=== PATIENT | female | born 1995 | race Hispanic/Latino ===

== ENCOUNTER 2017-11-30 08:51 | Emergency (ER) | payer OTHER, SELFPAY ==
[2017-11-30] MEDS ORDERED: CEFTRIAXONE/SWI 1gm 1 GM/10 ML SYR ONE (09:09)
[2017-11-30 09:35] LABS: Absolute Lymphocytes (CBC) 0.6 K/uL (0.7-4.9); Absolute Monocytes 0.3 K/uL (0.1-1.3); Absolute Neutrophil 11.6 K/uL (1.8-8.0); Basophils % 0.1 % (0-1.3); Eosinophils % 0.3 % (0-4.4); Hematocrit 32.6 % (36.0-45.0); Lymphocytes % 4.8 % (15.3-44.8); MCV 88.8 fL (80-100); MPV 10.1 fL (7.6-11.3); Monocytes % 2.1 % (3.3-12.3); RBC Red Blood Cell Count 3.67 M/uL (3.86-4.86)
[2017-11-30] MEDS ORDERED: NA CHLORIDE 0.9% 1,000 ML ONE ×2 (09:37→10:46)
[2017-11-30 09:43] LABS: Urine Bacteria 20-50 /HPF (<20); Urine Culture Reflex Order NOT NEEDED; Urine RBC <5 /HPF (NONE SEEN)
[2017-11-30 09:48] LABS: Glucose Level 76 mg/dL (65-120)
[2017-11-30 09:54] LABS: ALT/SGPT 13 IU/L (10-60); AST/SGOT 17 IU/L (10-42); Albumin 2.9 g/dL (3.2-5.5); Alkaline Phosphatase 120 IU/L (42-121); BUN Blood Urea Nitrogen 5 mg/dL (6-20); Bilirubin Direct 0.1 mg/dL (0-0.2); Bilirubin Total 0.6 mg/dL (0.3-1.2)
[2017-11-30 10:04] LABS: Potassium 3.6 mEq/L (3.6-5.0); Sodium Level 132 mEq/L (135-145)
[2017-11-30 10:06] LABS: Bicarbonate 13 mEq/L (21-31)
[2017-11-30 10:43] LABS: Blood Morphology Comment NOT SEEN (NOT SEEN); Platelet Estimate ADEQ
[2017-11-30] MEDS ORDERED: D5W IV SCH (11:00)
[2017-11-30] MEDS ORDERED: NA BICARB IV SCH (11:00)
[2017-11-30 11:51] LABS: Blood Gas Oxyhemoglobin 96.5 % (94-97); Blood O2 Saturation 98.5 % (92-98.5)
[2017-11-30 13:21] LABS: Bicarbonate 16 mEq/L (21-31); Glucose Level 135 mg/dL (65-120); Potassium 3.4 mEq/L (3.6-5.0); Sodium Level 134 mEq/L (135-145)
[2017-11-30 13:29] LABS: BUN Blood Urea Nitrogen < 5 mg/dL (6-20)
--- NOTE | 2017-11-30 14:06 | ER ---
Nurse's Notes [facility] Name: Mlaini Anne Age: 22 yrs Sex: Female : 1995 Arrival Date: 11/30/2017 Time: 08:52 Bed 16 Private MD: Diagnosis: Type 1 diabetes mellitus; state;Dehydration;Urinary tract infection, site not specified Presentation: 11/30 08:53 Presenting complaint: EMS states: Fever and foul smelling urine x 2 days. Pt is 20 hb weeks , . Hx DM, preeclampsia, DKA. BP 110/60, HR104, SpO2 99% on RA, T 99.8, BGL 81. Has not had breakfast or morning insulin. Transition of care: patient was not received from another setting of care. Onset of symptoms was November 29, 2017. Risk Assessment: Do you want to hurt yourself or someone else? Patient reports no desire to harm self or others. Initial Sepsis Screen: Does the patient meet any 2 criteria? No. Patient's initial sepsis screen is negative. Does the patient have a suspected source of infection? No. Patient's initial sepsis screen is negative. Care prior to arrival: None. 08:53 Method Of Arrival: EMS: [facility] hb 08:53 Acuity: SHERLY 3 hb Triage Assessment: 10:10 General: Behavior is cooperative. 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 - Social history:: Smoking status: Patient/guardian denies using tobacco. - Ebola Screening: : No symptoms or risks identified at this time. Screenin:59 Abuse screen: Denies threats or abuse. Denies injuries from another. Nutritional hb screening: No deficits noted. Tuberculosis screening: No symptoms or risk factors identified. Fall Risk None identified. Assessment: 09:10 General: Appears in no apparent distress. Pain: Pain currently is 6 out of 10 on a pain hb scale. Neuro: Level of Consciousness is awake, alert, obeys commands, Oriented to person, place, time, situation. Cardiovascular: Capillary refill < 3 seconds Patient's skin is warm and dry. Respiratory: Airway is patent Trachea midline Respiratory effort is even, unlabored, Respiratory pattern is regular, symmetrical. GI: No signs and/or symptoms were reported involving the gastrointestinal system. : Reports right flank pain, foul smelling urine. EENT: No signs and/or symptoms were reported regarding the EENT system. Derm: No signs and/or symptoms reported regarding the dermatologic system. Skin is intact, is healthy with good turgor. Musculoskeletal: No signs and/or symptoms reported regarding the musculoskeletal system. 09:25 Reassessment: BGL 67, SENIOR TECHNICAL SUPPORT ENGINEER Eva notified, orange juice provided as ordered. hb 10:00 Reassessment: BGL 83. SENIOR TECHNICAL SUPPORT ENGINEER Eva notified. NAD. VSS. Family remains at bedside. hb 10:41 General: Appears in no apparent distress. comfortable. Neuro: Level of Consciousness is aj1 awake, alert, obeys commands, Oriented to person, place, time, situation, Speech is normal. Cardiovascular: Patient's skin is warm and dry. Respiratory: Airway is patent Respiratory effort is even, unlabored, Respiratory pattern is regular, symmetrical. GI: No signs and/or symptoms were reported involving the gastrointestinal system. : Reports foul smelling urine. EENT: No signs and/or symptoms were reported regarding the EENT system. Derm: No signs and/or symptoms reported regarding the dermatologic system. Skin is pink, warm \T\ dry. normal. Musculoskeletal: No signs and/or symptoms reported regarding the musculoskeletal system. Circulation, motion, and sensation intact. 11:45 Reassessment: Patient appears in no apparent distress at this time. No changes from aj1 previously documented assessment. Patient and/or family updated on plan of care and expected duration. Pain level reassessed. Patient is alert, oriented x 3, equal unlabored respirations, skin warm/dry/pink. 12:20 Reassessment: Patient appears in no apparent distress at this time. No changes from aj1 previously documented assessment. Patient and/or family updated on plan of care and expected duration. Pain level reassessed. Patient is alert, oriented x 3, equal unlabored respirations, skin warm/dry/pink. 13:17 Reassessment: Patient appears in no apparent distress at this time. No changes from aj1 previously documented assessment. Patient and/or family updated on plan of care and expected duration. Pain level reassessed. Patient is alert, oriented x 3, equal unlabored respirations, skin warm/dry/pink. 14:34 Reassessment: Patient appears in no apparent distress at this time. No changes from aj1 previously documented assessment. Patient and/or family updated on plan of care and expected duration. Pain level reassessed. Patient is alert, oriented x 3, equal unlabored respirations, skin warm/dry/pink. Vital Signs: 08:55 BP 102 / 72; Pulse 100; Resp 16; Temp 99.7; Pulse Ox 100% on R/A; Pain 10/10; hb 10:42 BP 104 / 62; Pulse 87; Resp 18; Pulse Ox 99% on R/A; aj1 11:45 BP 106 / 68; Pulse 82; Resp 18; Pulse Ox 99% on R/A; aj1 12:20 BP 102 / 68; Pulse 84; Resp 18; Pulse Ox 100% on R/A; aj1 13:17 BP 105 / 62; Pulse 78; Resp 18; Pulse Ox 100% on R/A; aj1 14:35 BP 104 / 66; Pulse 82; Resp 18; Pulse Ox 99% ; aj1 Vitals: 09:30 Heart Tones 156, variable, + movement. hb ED Course: 08:52 Patient arrived in ED. hb 08:52 Eva Umana FNP-C is PHCP. snw 08:52 Naseem Meraz MD is Attending Physician. snw 08:55 Triage completed. hb 08:57 Arm band placed on right wrist. hb 09:15 Patient has correct armband on for positive identification. Placed in gown. Bed in low hb position. Call light in reach. Side rails up X 1. 09:29 Azucena Sevilla, RN is Primary Nurse. hb 10:06 Notified Nurse Practitioner and/or Physician Filler Block Inserter Remover of a critical lab result(s), iw CO2=13. 14:35 No provider procedures requiring assistance completed. IV discontinued, intact, aj1 bleeding controlled, No redness/swelling at site. Pressure dressing applied. Administered Medications: 09:15 Drug: NS 0.9% 1000 ml Route: IV; Rate: 250 ml/hr; Site: left forearm; hb 14:37 Follow up: IV Status: Completed infusion; IV Intake: 1000ml aj1 09:34 Drug: Rocephin - (cefTRIAXone) 1 grams Route: IVPB; Infused Over: 30 mins; Site: left hb forearm; 14:38 Follow up: Response: No adverse reaction; IV Status: Completed infusion aj1 10:49 Drug: D5W with Sodium Bicarbonate 50 mEq/L 1000 ml Route: IV; Rate: 250 ml/hr; Site: aj1 left antecubital; 14:37 Follow up: IV Status: Completed infusion; IV Intake: 1000ml aj1 10:49 Drug: NS 0.9% 1000 ml Route: IV; Rate: 1 bolus; Site: left antecubital; aj1 14:37 Follow up: IV Status: Completed infusion; IV Intake: 1000ml aj1 Point of Care Testing: Blood Glucose: 09:16 Blood Glucose: 67 mg/dL; hb 09:55 Blood Glucose: 83 mg/dL; hb 13:06 Blood Glucose: 141 mg/dL; aj1 Ranges: Intake: 14:37 IV: 1000ml; Total: 1000ml. aj1 14:37 IV: 1000ml; Total: 2000ml. aj1 14:37 IV: 1000ml; Total: 3000ml. aj1 Outcome: 14:36 AMA AMA form signed aj1 14:36 Condition: unchanged 14:36 Discharge instructions given to patient, Instructed on risks of leaving AMA, [facility] Demonstrated understanding of instructions. 14:38 Patient left the ED. aj1 Addendum: 12/04/2017 10:04 Addendum: Culture Results: Positive urine culture. Bacteria is resistant to, has i w intermediate sensitivity, or is not tested against prescribed antibiotics. Report given to CESAR for further evaluation and then to recreational vehicle resort manager for follow up with patient. Phone call Attempt #1 phone number not working. Signatures: Angeles Silver RN RN aj1 Eva Umana, BROOKE-C AGENT TICKETING GATE-Csnw Patricia Ibanez RN RN Azucena Sevilla RN RN
--- NOTE | 2017-11-30 14:06 | EDPHYS ---
Physician Documentation [facility] Name: Malini Anne Age: 22 yrs Sex: Female : 1995 Arrival Date: 11/30/2017 Time: 08:52 Bed 16 Private MD: ED Physician Naseem Meraz HPI: 11/30 09:04 This 22 yrs old Female presents to ER via EMS with complaints of Fever, snw Urinary Problem. 09:04 The patient presents with urinary symptoms. Onset: The symptoms/episode began/occurred snw 2 day(s) ago, and became persistent. Modifying factors: The symptoms are alleviated by nothing. Associated signs and symptoms: Pertinent positives: cramping, Pertinent negatives: vaginal bleeding, vaginal discharge. Severity of symptoms: At their worst the symptoms were moderate. The patient has experienced similar episodes in the past. 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 - Social history:: Smoking status: Patient/guardian denies using tobacco. - Ebola Screening: : No symptoms or risks identified at this time. ROS: 09:01 Constitutional: Negative for chills and weight loss, + malaise, low grade temp Eyes: snw Negative for injury, pain, redness, and discharge, ENT: Negative for injury, pain, and discharge, Neck: Negative for injury, pain, and swelling, Cardiovascular: Negative for chest pain, palpitations, and edema, Respiratory: Negative for shortness of breath, cough, wheezing, and pleuritic chest pain, Abdomen/GI: Negative for abdominal pain, nausea, vomiting, diarrhea, and constipation, Back: Negative for injury and pain, : Negative for injury, bleeding, discharge, and swelling, MS/Extremity: Negative for injury and deformity, Skin: Negative for injury, rash, and discoloration, Neuro: Negative for headache, weakness, numbness, tingling, and seizure, Psych: Negative for depression, anxiety, suicide ideation, homicidal ideation, and hallucinations. Exam: 08:55 Constitutional: This is a well developed, well nourished patient who is awake, alert, snw and in no acute distress. Head/Face: Normocephalic, atraumatic. Eyes: Pupils equal round and reactive to light, extra-ocular motions intact. Lids and lashes normal. Conjunctiva and sclera are non-icteric and not injected. Cornea within normal limits. Periorbital areas with no swelling, redness, or edema. ENT: Nares patent. No nasal discharge, no septal abnormalities noted. Tympanic membranes are normal and external auditory canals are clear. Oropharynx with no redness, swelling, or masses, exudates, or evidence of obstruction, uvula midline. Mucous membranes moist. Neck: Trachea midline, no thyromegaly or masses palpated, and no cervical lymphadenopathy. Supple, full range of motion without nuchal rigidity, or vertebral point tenderness. No Meningismus. Chest/axilla: Normal chest wall appearance and motion. Nontender with no deformity. No lesions are appreciated. Cardiovascular: Regular rate and rhythm with a normal S1 and S2. No gallops, murmurs, or rubs. Normal PMI, no JVD. No pulse deficits. Respiratory: Lungs have equal breath sounds bilaterally, clear to auscultation and percussion. No rales, rhonchi or wheezes noted. No increased work of breathing, no retractions or nasal flaring. Back: No spinal tenderness. No costovertebral tenderness. Full range of motion. MS/ Extremity: Pulses equal, no cyanosis. Neurovascular intact. Full, normal range of motion. Neuro: Awake and alert, GCS 15, oriented to person, place, time, and situation. Cranial nerves II-XII grossly intact. Motor strength 5/5 in all extremities. Sensory grossly intact. Cerebellar exam normal. Normal gait. 08:55 Skin: Appearance: Color: pale, Temperature: warm, Moisture: dry. Vital Signs: 08:55 BP 102 / 72; Pulse 100; Resp 16; Temp 99.7; Pulse Ox 100% on R/A; Pain 10/10; hb 10:42 BP 104 / 62; Pulse 87; Resp 18; Pulse Ox 99% on R/A; aj1 11:45 BP 106 / 68; Pulse 82; Resp 18; Pulse Ox 99% on R/A; aj1 12:20 BP 102 / 68; Pulse 84; Resp 18; Pulse Ox 100% on R/A; aj1 13:17 BP 105 / 62; Pulse 78; Resp 18; Pulse Ox 100% on R/A; aj1 14:35 BP 104 / 66; Pulse 82; Resp 18; Pulse Ox 99% ; aj1 MDM: 08:55 Patient medically screened. pawan 13:28 Data reviewed: vital signs, nurses notes. Data interpreted: Pulse oximetry: on room air snw is 100 %. Interpretation: normal. Counseling: I had a detailed discussion with the patient and/or guardian regarding: the historical points, exam findings, and any diagnostic results supporting the discharge/admit diagnosis, lab results, the need for outpatient follow up, pt declines transfer. Speaks with her insurance adjuster every Saturday. Will go home to the [place] if recommended but declines transfer to [facility]. 11/30 09:01 Order name: Basic Metabolic Panel; Complete Time: 10:08 snw 11/30 09:01 Order name: CBC with Diff; Complete Time: 10:45 snw 11/30 09:01 Order name: Hepatic Function; Complete Time: 10:08 snw 11/30 09:01 Order name: Urine Microscopic Only; Complete Time: 10:06 snw 11/30 09:01 Order name: Urine Culture snw 11/30 09:01 Order name: Blood Culture* snw 11/30 09:23 Order name: Glucose, Ancillary Testing; Complete Time: 09:35 EDMS 11/30 10:00 Order name: Glucose, Ancillary Testing; Complete Time: 10:06 EDMS 11/30 10:43 Order name: Manual Differential; Complete Time: 10:45 EDMS 11/30 11:10 Order name: ABG; Complete Time: 11:59 snw 11/30 11:38 Order name: Chem 7; Complete Time: 13:30 snw 11/30 09:01 Order name: IV Saline Lock; Complete Time: 09:29 snw 11/30 09:01 Order name: Labs collected and sent; Complete Time: 09:29 snw 11/30 09:01 Order name: Urine Dipstick-Ancillary (obtain specimen); Complete Time: 09:30 snw 11/30 09:01 Order name: FHT's; Complete Time: 09:29 snw 11/30 09:17 Order name: Misc. Order: please keep an eye on pt's blood sugar - may need juice; snw Complete Time: 09:29 11/30 09:35 Order name: PO challenge; Complete Time: 09:56 snw 11/30 12:52 Order name: FSBS; Complete Time: 13:06 snw Administered Medications: 09:15 Drug: NS 0.9% 1000 ml Route: IV; Rate: 250 ml/hr; Site: left forearm; hb 14:37 Follow up: IV Status: Completed infusion; IV Intake: 1000ml aj 09:34 Drug: Rocephin - (cefTRIAXone) 1 grams Route: IVPB; Infused Over: 30 mins; Site: left hb forearm; 14:38 Follow up: Response: No adverse reaction; IV Status: Completed infusion aj1 10:49 Drug: D5W with Sodium Bicarbonate 50 mEq/L 1000 ml Route: IV; Rate: 250 ml/hr; Site: aj left antecubital; 14:37 Follow up: IV Status: Completed infusion; IV Intake: 1000ml aj1 10:49 Drug: NS 0.9% 1000 ml Route: IV; Rate: 1 bolus; Site: left antecubital; aj1 14:37 Follow up: IV Status: Completed infusion; IV Intake: 1000ml aj1 Point of Care Testing: Blood Glucose: 09:16 Blood Glucose: 67 mg/dL; hb 09:55 Blood Glucose: 83 mg/dL; hb 13:06 Blood Glucose: 141 mg/dL; aj1 Ranges: Critical Glucose Levels:Adult <50 mg/dl or >400 mg/dl <40 mg/dl or >180 mg/dl Disposition: 11/30/17 14:06 Patient has left against medical advice. Impression: Type 1 diabetes mellitus, state, Dehydration, Urinary tract infection, site not specified. - Patients states they are going to Home. - Condition is Stable. - Discharge Instructions: Dehydration, Adult, Type 1 Diabetes Mellitus, Adult, Diabetes and Sick Day Management, and Urinary Tract Infection. - Prescriptions for cefpodoxime 200 mg Oral Tablet - take 1 tablet by ORAL route every 12 hours with food; 20 tablet. Follow up: Private Physician; When: Upon discharge from the Emergency Department; Reason: Recheck today's complaints, Continuance of care, Re-evaluation by your physician. - Problem is an acute exacerbation. - Symptoms have improved. Addendum: 12/02/2017 09:00 Co-signature as Attending Physician, Naseem Meraz MD I agree with the assessment and c hughes plan of care. Signatures: Dispatcher [employer] EDAngeles Atkinson RN RN aj1 Naseem Meraz MD MD cha Therrien, Shelly, GRANT ADMINISTRATOR-C GRANT ADMINISTRATOR-Csnw Azucena Sevilla RN RN Corrections: (The following items were deleted from the chart) 11/30 14:38 14:06 11/30/2017 14:06 Patients has left against medical advice. Impression: Type 1 aj1 diabetes mellitus; state; Dehydration; Urinary tract infection, site not specified. Patient states they are going to Home. Condition is Stable. Follow up: Private Physician; When: Upon discharge from the Emergency Department; Reason: Recheck today's complaints, Continuance of care, Re-evaluation by your physician. Problem is an acute exacerbation. Symptoms have improved. snw
== END 2017-11-30 14:38 | disposition left against medical advice (07) ==
LOC: ER 08:51
DX: O23.42 Unspecified infection of urinary tract in pregnancy, second trimester (principal); O24.912 Unspecified diabetes mellitus in pregnancy, second trimester; E86.0 Dehydration; Z3A.20 20 weeks gestation of pregnancy; Z79.4 Long term (current) use of insulin
CPT/HCPCS: 36415; 80048; 80076; 81015; 82805; 82962; 85025; 87040; 87077; 87086; 87088; 87186; 96361; 96365; 96366; 99284; J0696; J7030